=== PATIENT | female | born 1975 | race Caucasian/White ===

== ENCOUNTER 2020-08-25 07:35 | Outpatient (REF) | payer OTHER, SELFPAY | END 2020-08-25 07:36 | disposition home or self-care (01) | LOC: HO.WFDLDS 07:35 | PROVIDERS: Visit Provider Internal Medicine | DX: Z20.828 Contact with and (suspected) exposure to other viral communicable diseases (principal) | CPT/HCPCS: 87635 ==

== ENCOUNTER 2020-09-02 11:11 | Outpatient (REF) | payer OTHER, SELFPAY ==
[2020-09-02 13:26] LABS: Basophils Percent Auto 0.6 % (0-2); Eosinophils Absolute Auto 0.1 X10*3/uL (0.0-0.4); Eosinophils Percent Auto 1.1 % (0-4); Hematocrit 37.5 % (37-47); Hemoglobin 11.9 g/dl (12.0-16.0); Imm Gran Abs Auto 0.02 X10*3/uL (0.00-0.03); Imm Gran Pct Auto 0.3 % (0.0-0.4); Lymphocytes Absolute Auto 4.3 X10*3/uL (1.2-4.9); Lymphocytes Percent Auto 59.4 % (20-40); MANUAL DIFF FLAG SCAN; Mean Corpuscular HGB Conc 31.7 g/dl (31.0-35.0); Mean Corpuscular Hemoglobin 28.9 pg (27.0-33.0); Mean Platelet Volume 11.4 fL (9.4-12.3); Monocytes Absolute Auto 0.6 X10*3/uL (0.1-1.2); Monocytes Percent Auto 8.1 % (2-11); Neutrophils Absolute Auto 2.2 X10*3/uL (2.0-8.3); Neutrophils Percent Auto 30.5 % (45-73); Platelet Count 207 X10*3/uL (160-400); Red Blood Count 4.12 X10*6/uL (4.20-5.50); Red Cell Distribution Width 13.8 % (11.0-16.0); SCAN SMEAR FLAG 1; White Blood Count 7.2 X10*3/uL (4.8-10.8)
[2020-09-02 13:43] LABS: Estimated Average Glucose 108 mg/dL; Hemoglobin A1c % 5.4 %
[2020-09-02 14:02] LABS: SLIDE REVIEW VERIFIED
[2020-09-02 14:07] LABS: Erythrocyte Sedimentation Rate 16 MM/HR (0-20)
[2020-09-02 14:19] LABS: Alanine Aminotransferase 248 U/L (0-31); Alkaline Phosphatase 434 U/L (39-117); Anion Gap 11 (12-20); Aspartate Amino Transferase 237 U/L (5-31); Bilirubin Total 0.4 mg/dL (0.0-1.0); Blood Urea Nitrogen 11 mg/dL (9-16); C Reactive Protein 0.23 mg/dL (< or = 0.50); Calcium 8.3 mg/dL (8.4-10.2); Carbon Dioxide 29 mmol/L (22-29); Chloride 102 mmol/L (96-108); Estimated Glomerular Filt Rate > 60; Glucose Random 93 mg/dL (60-115); Rheumatoid Factor < 15.0 IU/mL (<15.0); Sodium 138 mmol/L (135-145); Total Protein 7.1 g/dL (6.5-8.0)
[2020-09-02 14:27] LABS: Free T4 (Free Thyroxine) 1.01 ng/dL (0.71-1.85); Thyroid Stimulating Hormone 0.52 uIU/mL (0.32-4.0)
[2020-09-03 13:11] LABS: Antibody to SS-A Antigen <1.0 NEG AI (<1.0 NEG); Antibody to SS-B Antigen <1.0 NEG AI (<1.0 NEG)
[2020-09-04 01:32] LABS: Follicle Stimulating Hormone 60.9 mIU/mL
[2020-09-04 14:52] LABS: Anti Nuclear Antibody Screen NEGATIVE (NEGATIVE)
== END 2020-09-02 11:12 | disposition home or self-care (01) ==
LOC: HO.MANLDS 11:11
PROVIDERS: PCP Physician Assistant; Visit Provider Physician Assistant
DX: N91.5 Oligomenorrhea, unspecified (principal); R63.1 Polydipsia; R68.2 Dry mouth, unspecified
CPT/HCPCS: 36415; 80053; 83001; 83036; 84439; 84443; 85025; 85652; 86038; 86039; 86140; 86235; 86431

== ENCOUNTER 2020-09-06 09:56 | Outpatient (REF) | payer OTHER, SELFPAY ==
[2020-09-06 11:58] LABS: Amylase 68 U/L (28-100); Lipase 26 U/L (8-78)
[2020-09-06 12:36] LABS: HBc Num1 0.13 S/CO (0.00-0.79); HBsAGNum1 0.16 S/CO (0.00-0.99); Hepatitis B Core Antibody Nonreactive (Nonreactive); Hepatitis B Surface Antigen Negative (Negative); ~HepC Num1 0.12 S/CO (0.00-0.79); ~Hepatitis B Surface Antibody NONREACTIVE (Nonreactive); ~Hepatitis C Antibody Nonreactive (Nonreactive)
[2020-09-08 06:57] LABS: EBV-NA IgG Index <18.00 U/mL
[2020-09-08 08:12] LABS: Hepatitis A Antibody IgM 0.22 Index (0-0.79); ~Hepatitis A Antibody IgM Nonreactive (Nonreactive)
== END 2020-09-06 09:57 | disposition home or self-care (01) ==
LOC: HO.MANLDS 09:56
PROVIDERS: PCP Physician Assistant; Visit Provider Physician Assistant
DX: R94.5 Abnormal results of liver function studies (principal); R53.83 Other fatigue
CPT/HCPCS: 82150; 83690; 86618; 86664; 86665; 86704; 86706; 86709; 86803; 87340

== ENCOUNTER 2020-09-28 09:39 | Outpatient (REF) | payer OTHER, SELFPAY ==
[2020-09-28 13:34] LABS: Alanine Aminotransferase 12 U/L (0-31); Albumin Level 4.2 g/dL (3.5-5.0); Alkaline Phosphatase 120 U/L (39-117); Aspartate Amino Transferase 26 U/L (5-31); Bilirubin Direct 0.2 mg/dL (0.0-0.5); Bilirubin Total 0.4 mg/dL (0.0-1.0); C Reactive Protein 0.03 mg/dL (< or = 0.50); Total Protein 7.4 g/dL (6.5-8.0)
[2020-09-28 13:49] LABS: Erythrocyte Sedimentation Rate 10 MM/HR (0-20)
[2020-09-29 21:18] LABS: EBV-NA IgG Index <18.00 U/mL; Lyme Abs Screen <0.90 index
== END 2020-09-28 09:40 | disposition home or self-care (01) ==
LOC: HO.MANLDS 09:39
PROVIDERS: PCP Physician Assistant; Visit Provider Physician Assistant
DX: R94.5 Abnormal results of liver function studies (principal)
CPT/HCPCS: 36415; 80076; 85652; 86140; 86618; 86664; 86665

== ENCOUNTER 2024-08-21 07:55 | Outpatient (REF) | payer OTHER, SELFPAY ==
[2024-08-21 13:26] LABS: MANUAL DIFF FLAG NO
[2024-08-21 13:32] LABS: Basophils Percent Auto 0.7 % (0-2); Eosinophils Absolute Auto 0.1 X10*3/uL (0.0-0.4); Eosinophils Percent Auto 1.6 % (0-4); Hematocrit 37.8 % (37.0-47.0); Hemoglobin 12.3 g/dl (12.0-16.0); Imm Gran Abs Auto 0.01 X10*3/uL (0.00-0.03); Imm Gran Pct Auto 0.2 % (0.0-0.4); Lymphocytes Absolute Auto 1.5 X10*3/uL (1.2-4.9); Lymphocytes Percent Auto 35.7 % (20-40); Mean Corpuscular HGB Conc 32.5 g/dl (31.0-35.0); Mean Corpuscular Hemoglobin 28.5 pg (27.0-33.0); Mean Corpuscular Volume 87.5 fL (80.0-98.0); Monocytes Absolute Auto 0.4 X10*3/uL (0.1-1.2); Monocytes Percent Auto 8.9 % (2-11); Neutrophils Absolute Auto 2.3 x10*3/uL (2.0-8.3); Neutrophils Percent Auto 52.9 % (45-73); Platelet Count 195 X10*3/uL (160-400); Red Blood Count 4.32 X10*6/uL (4.20-5.50); Red Cell Distribution Width 13.2 % (11.0-16.0); White Blood Count 4.3 X10*3/uL (4.8-10.8)
[2024-08-21 13:41] LABS: Estimated Average Glucose 114 mg/dL; Hemoglobin A1C 112.4278 umol/L; Hemoglobin A1c % 5.6 % (<6.0); Total Hemoglobin (HGBA1C) 3008.4051 umol/L
[2024-08-21 14:18] LABS: Alanine Aminotransferase 8 U/L (0-31); Albumin Level 4.3 g/dL (3.5-5.0); Alkaline Phosphatase 62 U/L (39-117); Anion Gap 11 (12-20); Aspartate Amino Transferase 25 U/L (5-31); Bilirubin Total 0.4 mg/dL (0.0-1.0); Blood Urea Nitrogen 19 mg/dL (9-16); Calcium 9.8 mg/dL (8.4-10.2); Carbon Dioxide 28 mmol/L (22-29); Chloride 106 mmol/L (96-108); Cholesterol 197 mg/dL (<200); Estimated Glomerular Filt Rate > 60; Glucose Random 83 mg/dL (60-115); HDL Cholesterol 73 mg/dL (>40); LDL Cholesterol Calculated 111 mg/dL (<100); Potassium 4.4 mmol/L (3.3-5.1); Sodium 141 mmol/L (135-145); Total Protein 6.9 g/dL (6.5-8.0); Triglycerides 66 mg/dL (<150)
== END 2024-08-21 07:56 | disposition home or self-care (01) ==
LOC: HO.MANLDS 07:55
PROVIDERS: Visit Provider Physician Assistant
DX: Z13.6 Encounter for screening for cardiovascular disorders (principal); Z13.1 Encounter for screening for diabetes mellitus
CPT/HCPCS: 36415; 80053; 80061; 83036; 85025

== ENCOUNTER 2025-02-05 14:18 | Outpatient (REF) | payer OTHER, SELFPAY ==
--- OUTSIDE RECORDS SUMMARY | 2025-02-05 14:40 | XMS_ITS | Continuity of Care Document ---
Author Organization [facility], [facility] Address [address] [place] [address] [place] [address] Assessment No assessment recorded. Plan of Treatment Reminders Order Date Submit Date Provider Last Modified By Organization Details Last Modified Time Details Appointments SDV 2024 02:00P JENY RUSS Not available Not available Not available Lab lyme disease igg+igm, serum, reflex western blot 2024 [facility], [address] [place] [address], [id number], 02/05/2025 14:15:15 anaplasma phagocyto philum + ehrlichia chaffeens is IgG + IgM panel, serum 2024 025 [facility], [address] [place] [address], [id number], 02/05/2025 14:15:15 ESR (erythroc yte sedimenta tion rate), blood 2024 025 [facility], [address] [place] [address], [id number], 02/05/2025 14:15:15 C-reactiv e protein, quantitat ajay, serum or plasma 2024 025 [facility], [address] [place] [address], [id number], 02/05/2025 14:15:15 Referral None recorded. Procedures None recorded. Surgeries None recorded. Imaging None recorded. Medication Orders diclofena c sodium 75 mg tablet,de layed release 2024 025 [id number], [address] [place], [place], [id number], 02/05/2025 14:09:16 Patient TargetsNo targets recorded. Patient InstructionsNo instructions recorded. Reason for Referral None Reported. Problems Name Problem SNOMED Code Status Onset Date Resolution Date Notes Provider Name and Address Organization Details Recorded Time Asthma 388031885 Active 2018 Not Available [facility] 17:22:15 Chronic uveitis 891073434 Active 2018 RIGHT EYE - sees opthalmal ogist Not Available [facility] 17:22:15 Hernia of anterior abdomina l wall 819176332 Active 2021 JENY CARLISLE [address] [place], [address], [facility] 2 09:37:11 Pain of left knee region 60788465479 4109 Active 2021 JENY CARLISLE [address] [place] [address], [phone], [facility] 2 12:01:21 Headache 92584637 Active 2024 JENY CARLISLE [address] [place], [address], [facility] 5 14:04:30 Generali zed rash 353915328 Active 2024 JENY CARLISLE [address] [place], [address], [facility] 5 14:04:49 Problem Notes None recorded. Procedures Surgical History Date Name Laterality Status Provider Name and Address Organization Details Recorded Time 12/01/19 Colonoscopy completed Gonzales Stratton [facility] 12/01/2024 15:27:49 Unlisted px lacrimal system completed January ADEN Lobato [address] [place], [address], [facility] 08/14/2019 14:36:10 removal of intrauterine device completed January ADEN Lobato [address] [facility], [place], [address], [facility] 08/14/2019 14:36:17 Imaging Results None recorded. Procedure Notes None recorded. Medical Equipment None Reported. Allergies Allergen ID Allergen Name Allergen Category Reaction Reaction Severity Criticality Documentation Date Start Date Code Code System Note Provider Name and Address Organization Details Recorded Time 3546 [employer] medicatio n Not available Not available Not available 08/14/2019 66699 3 RxNorm mouth sores Maki mcbride, [facility] 9 14:18:53 Medications Name Sig Start Date Stop Date Status Note LastModified by Organization Details LastModified Time fluconazo le 100 mg tablet Take 1 tablet twice a day by oral route for 7 days. 12/10 completed Not Available Not Available Not Available nystatin 100,000 unit/mL oral suspensio n 5 ML 4 times per day x 2 weeks - swish and swallow, retain in mouth for as long as possible . start after completi ng diflucan 12/10 completed Not Available Not Available Not Available Lidocaine Viscous 2 % mucosal solution Take 15 mL every 3 hours by oral route as needed for 7 days. 12/10 completed Not Available Not Available Not Available ofloxacin 0.3 % eye drops 09/02 completed Not Available Not Available Not Available valacyclo vir 1 gram tablet 12/10 completed Not Available Not Available Not Available clobetaso l 0.05 % topical cream 08/19 completed Not Available Not Available Not Available ketorolac 0.5 % eye drops 09/02 completed Not Available Not Available Not Available mycopheno late mofetil 500 mg tablet 08/14 completed Not Available Not Available Not Available prednisol one acetate 1 % eye drops,christie pension 08/19 completed Not Available Not Available Not Available methotrex ate sodium 2.5 mg tablet TAKE 3 TABLETS BY MOUTH TWICE DAILY 1 DAY EACH WEEK 08/19 completed Not Available Not Available Not Available diclofena c sodium 75 mg tablet,de layed release Take 1 tablet twice a day by oral route as needed for 30 days. 2024 active Not Available Not Available Not Avai lable folic acid 1 mg tablet TAKE 1 TABLET BY MOUTH EVERY DAY 08/19 completed Not Available Not Available Not Available moxifloxa fady 0.5 % eye drops INSTILL 1 DROP INTO THE RIGHT EYE 1-2 HOURS EVERY DAY 08/19 completed Not Available Not Available Not Available ibuprofen prn 08/14 completed Not Available Not Available Not Available Tylenol prn 08/14 completed Not Available Not Available Not Available Humira Pen 40 mg/0.8 mL subcutane ous kit 08/14 completed uveitis - optho Not Available Not Available Not Available Humira(CF ) Pen 40 mg/0.4 mL subcutane ous kit 08/14 completed Not Available Not Available Not Available Fluarix Quad (PF) 60 mcg (15 mcg x 4)/0.5 mL IM syringe 08/14 completed Not Available Not Available Not Available Yutiq 0.18 mg intravitr eal implant 08/19 completed Not Available Not Available Not Available Fluarix Quad (PF) 60 mcg (15 mcg x 4)/0.5 mL IM syringe 08/14 completed Not Available Not Available Not Available Vitals Date Recorded Body height Body mass index (BMI) Body weight Heart rate Oxygen saturation Oxygen saturation in Arterial blood by Pulse oximetry Systolic blood pressure Diastolic blood pressure Provider Name and Address Organization Details Last Updated DateTime 5 163.83 cm 28.4 kg/m2 13133.5 2 g 70 /min 99 % 99 % 118 mm[Hg] 74 mm[Hg] Talya Zheng MA [facility] 5 13:58:58 Social History Question Answer Notes LastModified by Organizat ion Details LastModified Time Tobacco Smoking Status Never Smoker Not Available [facility] 08/30/2020 03:36:23 Do You Or Have You Ever Used E-cigarettes Or Vape? Never Used Electronic Cigarettes [id number] Information not available 08/30/2020 What Was The Date Of Your Most Recent Tobacco Screening? 02/05/2025 [email or web address] Information not available 02/05/2025 Do You Or Have You Ever Used Smokeless Tobacco? Never Used Smokeless Tobacco [id number] Information not available 08/30/2020 How Much Tobacco Do You Smoke? No [id number] Information not available 08/30/2020 How Many Years Have You Smoked Tobacco? 0 [id number] Information not available 08/30/2020 Sex: Unknown Functional Status None recorded. Mental Status None recorded. Family History Relationship Description Onset Age of this Age Resolved Age Notes LastModified by Organization Details LastModified Time Mother Uveitis [email or web address] Not availabl e 08/14/2019 14:35:42 Mother Cerebrovascu lar accident [email or web address] Not available 14:35:50 Medical History No medical history recorded. Gynecological HistoryNo gynecological history recorded. Obstetrics History GPAL:G 0 P 0 0 0 0 Immunizations Vaccine Type Date Status Note Provider Nam e and Address Organization Details Recorded Time Influenza, split virus, quadrivalent, preservative 1 completed Luis A Stratton DO [address] [place] [address], [phone], [facility] 09/20/2021 07:59:26 COVID-19 vaccine, vector-nr, [id number], PF, 0.5 mL 1 completed Shari mcbride [facility] 2022 08:20:09 COVID-19, mRNA, LNP-S, PF, 30 mcg/0.3 mL dose 1 [facility] 08:[facility]23 Influenza, split virus, quadrivalent, preservative 8 completed Luis A Stratton DO [address] [place] [address], [phone], [facility] 10/16/2018 09:53:20 Influenza, split virus, quadrivalent, preservative 9 [facility] 07/10/2019 08:28:53 Past Encounters Encounter ID Performer Location Encounter Start Date Encounter Closed Date Diagnosis/Indication Diagnosis SNOMED-CT Code Diagnosis ICD10 Code Diagnosis Note [id number] JENY CARLISLE [facility] [address] [facility],[place] [address] 02/05/2025 13:49:49 02/05/2025 14:14:03 Headache 44743173 R51.0 will set up with lab work to confirm possible tick borne illness vs tension headache Generalized rash 7029273 06 R21 bull's eye rash Health Concerns Section Related Observation LastModified by Organization Detai ls LastModified Time None Recorded Concern Status LastModified by Organization Details LastModified Time None Recorded Payers Encounter Date Sequence Insurance Name Policy Number Policy Patten Covered Member ID Patten Member ID Guarantor Name 02/05/2025 1 [facility] [employer] - [facility] [id number] Marine Hernández [id number] Marine Hernández Notes Date Note Type Note Provider Name a ar Address Organization Details Recorded Time 5 text/html HeadacheReported bypatient.Location:bi lateral; temporal Quality:not the worst headache ever;not similar to previous headaches;tightness Severity:pain level 8/10; on the APAP and ibuprofen, 1/10 Duration:patient has had one consistent headache for the past week, ebbs when on medication but comes back Onset/Timing:abrupt onset; worse/persistent since: (last week); patient reports that a week ago she was in [place] she thought she had a bull's eye rash, the patient did get tick bites when she was hiking Context:not related to trauma Aggravating factors:nothing makes it worse Alleviating factors:OTC medication Associated Symptoms:no nausea; no vomiting; no fever; no constipation; no diarrhea; no nasal congestion/discharge; no sensitivity to light; no confusion; no slurred speech; no preceeding aura; no double vision; normal feeling/sensation; no motor paralysis; no dizziness; no sleep disturbances; no nosebleeds; no hoarseness; no sore throat; no hearing loss; no eyelid edema; no weight loss;tearing/watery eyes(her normal eye (L side)) JENY CARLISLE [address] [place] [address], [place], [address], [facility] 02/05/2025 14:14:02 OBGyn Episode No OBEpisode recorded.
--- OUTSIDE RECORDS SUMMARY | 2025-02-05 14:40 | XMS_ITS | Data Portability ---
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 Patient tolerating medication well at current dose without adverse effects. Refilled as below. Discussed plan with patient, who expressed understanding. Follow up as noted below. [email or web address] Not available 08/19/2024 14:17:24 Plan of Treatment Reminders Order Date Submit Date Provider Last Modified By Organization Details Last Modified Time Details Appointments SDV 2024 02:00P M JENY CARLISLE Not available Not available Not available Lab lyme disease igg+igm, serum, reflex western blot 2024 025 [facility], [address] [place] [address], [id number], 02/05/2025 14:15:15 anaplasma phagocyto philum + ehrlichia chaffeens is IgG + IgM panel, serum 2024 [facility], [address] [place] [address], [id number], 02/05/2025 14:15:15 ESR (erythroc yte sedimenta tion rate), blood 2024 [facility], [address] [place] [address], [id number], 02/05/2025 14:15:15 C-reactiv e protein, quantitat ajay, serum or plasma 2024 025 [facility], [address] [place] [address], [id number], 02/05/2025 14:15:15 lipid panel, blood 2023 [facility], [address] [place] [address], [id number], 08/24/2024 11:47:10 CMP, serum or plasma 2023 [facility], [address] [place] [address], [address], 08/24/2024 11:47:10 CBC w/ auto diff 2023 024 [facility], [address] [place] [address], [address], 08/19/2024 14:29:05 hemoglobi n A1c, QN, blood 2023 024 [facility], [address] [place] [address], [address], 08/19/2024 14:29:05 sjogren antibody panel (ssa, ssb, ro, la), serum 2019 NATE Not available 09/09/2020 13:13:53 ESR (erythroc yte sedimenta tion rate), blood 2019 jvanasse Not available 09/02/2020 11:12:51 C reactive protein, QN, serum or plasma 2019 jvanasse Not available 09/02/2020 11:12:51 OBINNA + rf (antinucl ear antibodie s + rheumatoi d factor), quantitat ajay, serum 2019 NATE Not available 09/06/2020 11:48:35 FSH (follicle -stimulat ing hormone), serum 2019 jvanasse Not available 09/02/2020 11:12:50 TSH + free T4, serum 2019 NATE Not available 09/05/2020 12:00:38 CMP, serum or plasma 2019 jvanasse Not available 09/02/2020 11:12:50 CBC w/ auto diff 2019 jvanasse Not available 09/02/2020 11:12:50 hemoglobi n A1c, QN, blood 2019 NATE Not available 09/05/2020 12:00:39 Referral gastroent erologist referral 2023 024 [facility], [address] [place], [address], 08/21/2024 08:20:50 general surgeon referral 2021 022 [email or web address] 10 Zaida Maxwell MD, [address], [place], [address], 04/24/2022 08:30:53 Procedures None recorded. Surgeries None recorded. Imaging None recorded. Medication Orders diclofena c sodium 75 mg tablet,de layed release 2024 025 [facility] #[id number], [address] [place], [place], [id number], 02/05/2025 14:09:16 Patient TargetsNo targets recorded. Patient InstructionsNo instructions recorded. Reason for Referral General Surgeon Referral for Hernia of anterior abdominal wall upper left abdominal wall hernia, worsened over the past few months Referring Physician: Liane Sherman, Internal Medicine, Encounter Date: 2022 Specialized Language Instructor Referral for Screening for malignant neoplasm of colon needs routine colonoscopy Referring Physician: Liane Sherman, Internal Medicine, Encounter Date: 08/19/2024 Results Created Date Observation Date Name Description Value Unit Range Abnormal Flag Note LastModifiedBy Organization Detail LastModifiedTime 09/20/20 20 09/20/2020 US, abdom en No observ ation record ed. [facility] [address] [place], [address], 12/03/2020 11:37:17 12/29/19 21 12/28/2020 XR, thora cic spine , 2 view No observ ation record ed. [email or web address] [place] [address] [place] [address], [address], 01/09/2021 14:38:47 12/29/19 21 12/28/2020 XR, chest , 2 view No observ ation [facility] ed. [facility] [address] [place], [address], 12/28/2020 16:51:31 03/09/20 21 03/09/2021 MAMMO , scree josey, digit al, bilat eral No observ ation record ed. [facility] [address] [place], [address], 03/09/2021 18:58:21 03/17/20 21 03/17/2021 MAMMO , scree josey, digit al, bilat eral No observ ation record ed. [facility] Orders [address], [place], [address], 03/17/2021 09:28:27 Result Notes None recorded. Problems Name Problem SNOMED Code Status Onset Date Resolution Date Notes Provider Name and Address Organization Details Recorded Time Asthma 335108309 Active 2018 [facility] Available [facility] 1 17:22:15 Chronic uveitis 933938149 Active 2018 RIGHT EYE - sees opthalmal ogist Not Available [facility] 1 17:22:15 Hernia of anterior abdomina l wall 586061786 Active 2021 JENY CARLISLE [address] [place], [address], [facility] 2 09:37:11 Pain of left knee region 94327110119 4109 Active 2021 JENY CARLISLE [address] [place], [address], [facility] 2 12:01:21 Headache 82387114 Active 2024 JENY CARLISLE [address] [place], [address], [facility] 5 14:04:30 Generali zed rash 440201400 Active 2024 JENY CARLISLE [address] [place], [address], [facility] 5 14:04:49 Problem Notes None recorded. Procedures Surgical History Date Name Laterality Status Provider Name and Address Organization Details Recorded Time 12/01/19 25 Colonoscopy completed Gonzales Stratton [facility] 12/01/2024 15:27:49 Unlisted px lacrimal system completed January ADEN Lobato [address] [place] [address], [address], [facility] 08/14/2019 14:36:10 removal of intrauterine device completed January ADEN Lobato [address] [place] [address], [address], [facility] 08/14/2019 14:36:17 Imaging Results Imaging Date Name Status LastModified by Organiz ation Details LastModified Time 09/20/2020 US, abdomen completed [email or web address] [facility] [address] [place], [address], 12/03/2020 11:37:17 12/28/2020 XR, thoracic spine, 2 view completed [email or web address] [place], [address], 01/09/2021 14:38:47 12/28/2020 [facility], [facility] [address] [place], [address], 12/28/2020 16:51:31 03/09/2021 MAMMO, screening, digital, bilateral completed [facility] [address] [place], [address], 03/09/2021 18:58:21 03/17/2021 MAMMO, screening, digital, bilateral completed [facility] Orders [address], [place], [address], 03/17/2021 09:28:27 Procedure Notes None recorded. Medical Equipment None Reported. Allergies Allergen ID Allergen Name Allergen Category Reaction Reaction Severity Criticality Documentation Date Start Date Code Code System Note Provider Name and Address Organization Details Recorded Time 3546 [facility] medicatio n Not available Not available Not available 08/14/2019 55334 3 RxNorm mouth sores Maki mcbride [place] - [facility] 9 14:18:53 Medications Name Sig [...] and Address Organization Details Last Updated DateTime 0 163.83 cm 25.6 kg/m2 52824.6 g 80 /min 96 % 96 % 100 mm[Hg] 70 mm[Hg] Maki Bernard [facility] 0 10:49:29 Date Recorded Body height Body mass index (BMI) Body weight Oxygen saturation Oxygen saturation in Arterial blood by Pulse oximetry Heart rate Systolic blood pressure Diastolic blood pressure Provider Name and Address Organization Details Last Updated DateTime 2 163.83 cm 27.2 kg/m2 00025.2 9 g 100 % 100 % 68 /min 120 mm[Hg] 62 mm[Hg] Shari Landa [facility] 2 09:32:26 Date Recorded Body height Body mass index (BMI) Body weight Heart rate Oxygen saturation Oxygen saturation in Arterial blood by Pulse oximetry Systolic blood pressure Diastolic blood pressure Provider Name and Address Organization Details Last Updated DateTime 4 163.83 cm 26.6 kg/m2 33064.8 g 66 /min 98 % 98 % 120 mm[Hg] 78 mm[Hg] Talya Zheng [facility] 4 14:11:55 Date Recorded Body height Body mass index (BMI) Body weight Heart rate Oxygen saturation Oxygen saturation in Arterial blood by Pulse oximetry Systolic blood pressure Diastolic blood pressure Provider Name and Address Organization Details Last Updated DateTime 5 163.83 cm 28.4 kg/m2 30036.5 2 g 70 /min 99 % 99 % 118 mm[Hg] 74 mm[Hg] Talya Zheng [facility] 5 13:58:58 Social History Question Answer Notes LastModified by Organizat ion Details LastModified Time Tobacco Smoking Status Never Smoker Not Available [facility] 08/30/2020 03:36:23 Do You Or Have You Ever Used E-cigarettes Or Vape? Never Used Electronic Cigarettes [id number] Information not available 08/30/2020 What Was The Date Of Your Most Recent Tobacco Screening? 02/05/2025 [email or web address] Information not available 02/05/2025 Do You Or Have You Ever Used Smokeless Tobacco? Never Used Smokeless Tobacco [id number] Information not available 08/30/2020 How Much Tobacco Do You Smoke? No [id number] Information not available 08/30/2020 How Many Years Have You Smoked Tobacco? 0 [id number] Information not available 08/30/2020 Sex: Unknown Functional [...] preservative 1 completed Luis A Stratton DO [address] [place], [address], [facility] 09/20/2021 07:59:26 COVID-19 vaccine, vector-nr, rS-Ad26, PF, 0.5 mL 1 completed Shari mcbride [facility] 2022 08:20:09 COVID-19, mRNA, LNP-S, PF, 30 mcg/0.3 mL dose 1 completed Shari mcbride [facility] 2022 08:20:23 Influenza, split virus, quadrivalent, preservative 8 completed Luis A Stratton DO [address] [place], [address], [facility] 10/16/2018 09:53:20 Influenza, split virus, quadrivalent, preservative 9 [facility] 07/10/2019 08:28:53 Past Encounters Encounter ID Performer Location Encounter Start Date Encounter Closed Date Diagnosis/Indication Diagnosis SNOMED-CT Code Diagnosis ICD10 Code Diagnosis Note [id number] Kirti ADEN Lobato [facility] [address] [facility] [address],[place] [address] 11/03/2018 09:43:47 11/03/2018 10:35:00 Chronic uveitis 933601599 H20.11 on immunosupp ressive Asthma 668739111 J45.90 9 EIB Candidiasis of mouth 797 30475 B37.0 [id number] [facility] [address] [facility] [address], [place] [address] 12/10/2018 14:52:17 12/10/2018 15:48:23 Oral lesion 1150259451 107 K13.70 continue lidocaine and nsaids as needed consider pred pending ENT availabili ty Chronic uveitis 43855014 2 H20.11 on immunosupp ressive Asthma 801018546 J45.90 9 EIB [id number] [facility] [address] [facility] [address] [address] 08/14/2019 13:58:19 08/14/2019 14:41:49 Pre-surgery evaluation 701653373 Z01.818 low risk will clear no further labs, ekg required Cataract of right eye 12 16803376 8231901 H26.9 [id number] JENY CARLISLE [facility] [address] [facility] [address], [place] [address] 09/02/2020 10:40:03 09/02/2020 11:16:55 Oligomenorrhea 12645332 N91.5 will check if she is early menopause and also TSH which may account for it Increased thirst 9225751 03 R63.1 will check CMP and A1c Xerostomia 08397199 R68. 2 ddx of hematologi mallory conditions as well, though low on list Asthma 049570917 J45.90 9 stable no flare ups hasn't had an issue since high school [id number] JENY CARLISLE [facility] [address] [facility] [address],[place] [address] 12/02/2020 15:15:25 12/02/2020 16:29:37 Pain in thoracic spine 296629595 M54.6 possibly related to the MSK sprain, but unable to determine without full physical exam also with the fact patient is still recovering from mono, labs still trending down may be best to send to rheum as this may be inflammato ry in nature Thoracic back sprain 274 591006 S23.3XXA will fu with patient after discussing with HR about locations in [facility] for ortho/[place] [id number] JENY CARLISLE [facility] [address] [facility],[place] [address] 2022 09:24:37 2022 14:13:23 Hernia of anterior abdominal wall 274358381 K43.9 will refer per patient to Dr. Maxwell 's office [id number] JENY CARLISLE [facility] [address] [facility],[place] [address] 08/19/2024 14:05:31 08/19/2024 15:02:55 Depression screening 541492211 Z13.31 SCREENING NEGATIVE Screening for malignant neoplasm of colon 530389209 Z12.11 needs GI referral for gastroente rology Asthma 038460609 J45.20 stable Screening for cardiovascular system disease 463196861 Z13.6 will set up for routine lab work Diabetes m ellitus screening 995623451 Z13.1 needs routine screening [id number] JENY CARLISLE [facility] [address] [facility],[place] [address] 02/05/2025 13:49:49 02/05/2025 14:14:03 Headache 33748909 R51.0 will set up with lab work to confirm possible tick borne illness vs tension headache Generalized rash 1082018 06 R21 bull's eye rash Health Concerns Section Related Observation LastModified by Organization Detai ls LastModified Time None Recorded Concern Status LastModified by Organization Details LastModified Time None Recorded Advance Directives Directive None Recorded Payers Encounter Date Sequence Insurance Name Policy Number Policy Patten Covered Member ID Patten Member ID Guarantor Name 09/02/2020 1 [facility] [id number] Marine White [id number] Marine White 12/02/2020 1 [facility] [id number] Marine Hernández [id number] Marine Hernández 2022 1 [facility] [id number] Marine Hernández [id number] Marine Hernández 08/19/2024 1 [facility] [id number] Marine Hernández [id number] Marine Hernández 02/05/2025 1 [facility] [id number] Marine Hernández [id number] Marine Hernández Notes Date Note Type Note Provider Name a nd Address Organization Details Recorded Time 0 text/html c/o sweats, dry mouth, increased thrist the patient reports she started with a fever (COVID negative) the patient also felt foggy as well, fatigue and a mental fogginess, though today she states it has been getting better day by day the patient reports that she has only has her period once this year, reports her last period was in july and some episodes of some spotting before that does have an appt with her urogynecology physician as well, was not able to see them before this because COVID states she has had some sweats, dry mouth, increased thirst as well, all of which started around this same time around last week or so mother does have hx of early menopause around mid-40s no fever, no sob, no chest pain, no abdominal pain, no n/v/d, no fatigue, no sore throat JENY CARLISLE [address] [place] [address], [address], [facility] 09/02/2020 12:58:35 1 text/html c/o back pain x 1 mo the patient has had back pain for 1 mo the patient was having back pain at last visit, but at the time she had mono, which caused body aches, and other lab abnormalities, which hid symptoms of her back pain the patient is having pain in the right side, mostly under the shoulder blade, under the ribs, radiates into the front the patient reports that when she twists her neck to the side, it pulls on the muscle on of her right side the patient states that when she bends to the side it strains the right side point of pain is the mid thoracic back, below right scapula radiating to the right side, underneath the armpit JENY CARLISLE [address] [place], [address], [facility] 12/03/2020 11:37:34 2 text/html c/o hernia the patient reports that she has had a hernia of her upper abdominal wall, left side awaythe patient states she is having to manually reduce it more now, than prior where it would spontaneously reduce by itselfit happens now with her running, finds it very uncomfortable no redness, swelling, skin change around the area of concern will fu with referral to general surgery patient requested Dr. 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 in [place], no changes, doing well JENY CARLISLE [address] [place], [address], [facility] 08/19/2024 14:30:41 5 text/html HeadacheReported bypatient.Location:bi lateral; temporal Quality:not the worst headache ever;not similar to previous headaches;tightness Severity:pain level 8/10; on the APAP and ibuprofen, 1/10 Duration:patient has had one consistent headache for the past week, ebbs when on medication but comes back Onset/Timing:abrupt onset; worse/persistent since: (last week); patient reports that a week ago she was in [place] she thought she had a bull's eye [...] eyes(her normal eye (L side)) JENY CARLISLE [address] [place], [address], [facility] 02/05/2025 14:14:02 OBGyn Episode No OBEpisode recorded.
[2025-02-05 18:04] LABS: C Reactive Protein < 0.10 mg/dL (< or = 0.50)
[2025-02-05 18:38] LABS: Erythrocyte Sedimentation Rate 9 MM/HR (0-20)
[2025-02-08 17:18] LABS: Lyme Abs Screen <0.90 index
[2025-02-11 14:44] LABS: A. Phagocytophilum Ab IgG <1:64 (<1:64); A. Phagocytophilum Ab IgM <1:20 (<1:20); E. Chaffeensis Ab IgG <1:64 (<1:64); E. Chaffeensis Ab IgM <1:20 (<1:20)
== END 2025-02-05 14:19 | disposition home or self-care (01) ==
LOC: HO.MANLDS 14:18
PROVIDERS: Visit Provider Physician Assistant
DX: R51.9 Headache, unspecified (principal)
CPT/HCPCS: 36415; 85652; 86140; 86617; 86618; 86666